=== PATIENT | male | born 1980 ===

== ENCOUNTER 2020-12-10 10:32 | Observation (INO) ==
[2020-12-10] MEDS ORDERED: Orphenadrine 60 MG/2 ML VIAL IM ONE (10:54)
[2020-12-10] MEDS ORDERED: methylPREDNISolone 125 MG/2 ML VIAL IM STA (10:54)
[2020-12-10 11:08] LABS: Bilirubin,Urine Negative (Negative); Blood,Urine Negative (Negative); Clarity,Urine Clear (Clear); Color,Urine Light-Yellow (Yellow); Glucose,Urine (UA) Normal (Normal); Ketones,Urine Negative (Negative); Leukocyte Esterase,Urine Negative (Negative); Nitrite,Urine Negative (Negative); PH,Urine 6.5 pH Units (5.0-8.0); Protein,Urine Negative (Neg-Trace); Specific Gravity,Urine 1.019 (1.010-1.025); Urobilinogen,Urine Normal (Normal)
[2020-12-10] MEDS ORDERED: *HR* HYDROmorphone (PF) 1 MG/ML SYRINGE IVP ONE (15:27)
[2020-12-10 16:15] LABS: Basophils % 0.1 %; Eosinophils % 0.1 %; Hematocrit 46.1 % (37.5-50.1); Hemoglobin 14.9 g/dL (12.9-16.9); Immature Granulocytes % 0.4 % (0-4); Lymphocytes # 0.7 K/mcL (0.6-4.6); Lymphocytes % 4.5 %; Mean Corpuscular HGB Conc 32.3 g/dL (31.6-35.5); Mean Corpuscular Hemoglobin 29.5 pg (28.0-33.3); Mean Corpuscular Volume 91.3 fL (83.0-100.0); Monocytes # 0.1 K/mcL (0.0-1.3); Monocytes % 0.9 %; Neutrophils # 13.8 K/mcL (1.6-8.9); Platelet Count 290 K/mcL (140-400); Red Blood Count 5.05 M/mcL (4.19-5.50); Red Cell Distribution Width 12.8 % (11.5-14.5); White Blood Count 14.7 K/mcL (4.3-11.1)
[2020-12-10 16:28] LABS: BUN/Creatinine Ratio 13 (6-26); Blood Urea Nitrogen 9 mg/dL (6-20); Calcium 9.2 mg/dL (8.6-10.3); Carbon Dioxide 24 mEq/L (23-29); Chloride 103 mEq/L (98-107); Glucose 116 mg/dL (70-105); Osmolality,Calculated 280 (280-300); Potassium 4.3 mEq/L (3.5-5.1); Sodium 135 mEq/L (136-145); eGFR For African Americans > 60 (> 60); eGFR For Non-African Americans > 60 (> 60)
[2020-12-10] MEDS ORDERED: Ondansetron 4 MG/2 ML VIAL IVP PRN (17:09)
[2020-12-10] MEDS ORDERED: Naloxone 0.4 MG/ML INJ IVP PRN (17:09)
[2020-12-10] MEDS ORDERED: Acetaminophen 325 MG TABLET PO PRN (17:09)
[2020-12-10 17:29] LABS: Amphetamine Screen,Urine Negative ng/mL (Cutoff=1000); Barbiturate Screen,Urine Negative ng/mL (Cutoff=200); Benzodiazepines Screen,Urine Positive ng/mL (Cutoff=200); Cannabinoid Screen,Urine Positive ng/mL (Cutoff = 50); Cocaine Screen,Urine Negative ng/mL (Cutoff= 300); Opiate Screen,Urine Negative ng/mL (Cutoff=300); Phencyclidine Screen,Urine Negative ng/mL (Cutoff=25)
[2020-12-10] MEDS: *HR* HYDROcodone/Acet 5/325 mg TABLET PO PRN (19:47)
[2020-12-10] MEDS: traZODone 50 MG TABLET PO SCH (19:47)
[2020-12-10] MEDS: *HR* Heparin 5,000 UNIT/ML VIAL SQ SCH (22:06)
[2020-12-11 01:45] LABS: Hematocrit 43.8 % (37.5-50.1); Hemoglobin 14.3 g/dL (12.9-16.9); Mean Corpuscular HGB Conc 32.6 g/dL (31.6-35.5); Mean Corpuscular Hemoglobin 29.4 pg (28.0-33.3); Mean Corpuscular Volume 89.9 fL (83.0-100.0); Mean Platelet Volume 9.3 fL (9.4-12.4); Platelet Count 346 K/mcL (140-400); Red Blood Count 4.87 M/mcL (4.19-5.50); Red Cell Distribution Width 12.8 % (11.5-14.5); White Blood Count 14.6 K/mcL (4.3-11.1)
[2020-12-11 02:04] LABS: BUN/Creatinine Ratio 18 (6-26); Blood Urea Nitrogen 14 mg/dL (6-20); Carbon Dioxide 24 mEq/L (23-29); Chloride 101 mEq/L (98-107); Chol/HDL Ratio 5.8 (0-4.9); Cholesterol 214 mg/dL (< 200); Glucose 191 mg/dL (70-105); HDL Cholesterol 37 mg/dL (40-59); LDL Cholesterol,Calculated 159 mg/dL (< 100); Magnesium 1.8 mg/dL (1.6-2.6); Osmolality,Calculated 288 (280-300); Potassium 3.7 mEq/L (3.5-5.1); Sodium 136 mEq/L (136-145); Triglycerides 88 mg/dL (< 150); eGFR For African Americans > 60 (> 60); eGFR For Non-African Americans > 60 (> 60)
[2020-12-11] MEDS: *HR* HYDROmorphone 2 MG TABLET PO PRN ×2 (02:16→20:44)
[2020-12-11 02:50] LABS: Estimated Average Glucose 108 mg/dl; Hemoglobin A1C 5.4 %
[2020-12-11] MEDS: *HR* Heparin 5,000 UNIT/ML VIAL SQ SCH ×3 (06:06→20:45)
[2020-12-11] MEDS: Cholecalciferol (D-3) 1,000 UNIT (25MCG) TABLET PO SCH (08:21)
[2020-12-11] MEDS: allopurinoL 100 MG TABLET PO SCH (08:21)
[2020-12-11] MEDS: Venlafaxine XR (24 HR) 75 MG CAP.ER.24H PO SCH (08:25)
[2020-12-11] MEDS: *HR* HYDROcodone/Acet 5/325 mg TABLET PO PRN (16:24)
[2020-12-11] MEDS: traZODone 50 MG TABLET PO SCH (20:44)
[2020-12-12 06:08] LABS: Hematocrit 43.5 % (37.5-50.1); Hemoglobin 13.9 g/dL (12.9-16.9); Mean Corpuscular Hemoglobin 29.4 pg (28.0-33.3); Mean Corpuscular Volume 92.2 fL (83.0-100.0); Mean Platelet Volume 9.3 fL (9.4-12.4); Platelet Count 292 K/mcL (140-400); Red Blood Count 4.72 M/mcL (4.19-5.50); White Blood Count 10.9 K/mcL (4.3-11.1)
[2020-12-12] MEDS: *HR* Heparin 5,000 UNIT/ML VIAL SQ SCH ×2 (06:19→13:04)
[2020-12-12] MEDS: *HR* HYDROcodone/Acet 5/325 mg TABLET PO PRN (06:21)
[2020-12-12 06:25] LABS: BUN/Creatinine Ratio 16 (6-26); Blood Urea Nitrogen 14 mg/dL (6-20); Calcium 8.6 mg/dL (8.6-10.3); Carbon Dioxide 28 mEq/L (23-29); Chloride 105 mEq/L (98-107); Glucose 118 mg/dL (70-105); Osmolality,Calculated 290 (280-300); Potassium 3.9 mEq/L (3.5-5.1); Sodium 139 mEq/L (136-145); eGFR For African Americans > 60 (> 60); eGFR For Non-African Americans > 60 (> 60)
[2020-12-12] MEDS: Cholecalciferol (D-3) 1,000 UNIT (25MCG) TABLET PO SCH (08:53)
[2020-12-12] MEDS: *HR* HYDROmorphone 2 MG TABLET PO PRN (08:53)
[2020-12-12] MEDS: allopurinoL 100 MG TABLET PO SCH (08:53)
[2020-12-12] MEDS: Venlafaxine XR (24 HR) 75 MG CAP.ER.24H PO SCH (08:55)
[2020-12-12 15:34] VITALS: BP 149/92
== END 2020-12-12 15:43 | disposition home or self-care (01) ==
LOC: 3NENU 10:32 → EMEROOARM 10:32 → SUATTDRO 17:10 → 3NENU 18:49
PROVIDERS: ADMIT Internal Medicine; ATTEND Internal Medicine

== ENCOUNTER 2021-05-18 06:28 | Observation (INO) ==
[2021-05-18] MEDS ORDERED: Clindamycin 900 MG/50 ML 900 MG/50 ML IV.SOLN IVPB ONE (07:01)
[2021-05-18] MEDS ORDERED: *HR* Midazolam HCl 2 MG/2 ML VIAL ONE (07:11)
[2021-05-18] MEDS ORDERED: Lidocaine -MPF 2% 2 ML VIAL ONE (07:11)
[2021-05-18] MEDS ORDERED: *HR* Rocuronium Bromide 50 MG/5 ML VIAL ONE (07:11)
[2021-05-18] MEDS ORDERED: *HR* FentaNYL (PF) 100 MCG/2 ML VIAL ONE (07:11)
[2021-05-18] MEDS ORDERED: *HR* Succinylcholine 200 MG/10 ML VIAL IVP ONE (07:11)
[2021-05-18] MEDS ORDERED: Lidocaine HCL 4 ML Topical Solution (Laryng-O-Jet Kit Sterile Pak) TP ONE (07:11)
[2021-05-18] MEDS ORDERED: Ondansetron 4 MG/2 ML VIAL ONE (07:11)
[2021-05-18] MEDS ORDERED: *HR* Propofol 200 MG/20 ML VIAL IVP ONE (07:11)
[2021-05-18] MEDS ORDERED: Ringers Solution, Lactated 1,000 ML IVC SCH (07:15)
[2021-05-18] MEDS ORDERED: *HR* Vasopressin 20 UNIT/ML VIAL ONE (07:27)
[2021-05-18] MEDS ORDERED: *HR* OxyCODONE Immed Rel 5 MG TABLET PO PRN (07:34)
[2021-05-18] MEDS ORDERED: Famotidine 20 MG/2 ML VIAL IVP ONE (07:34)
[2021-05-18] MEDS ORDERED: Acetaminophen IV 1,000 MG/100 ML BAG IVPB ONE (07:34)
[2021-05-18] MEDS ORDERED: Pregabalin 75 MG CAPSULE PO ONE (07:34)
[2021-05-18] MEDS ORDERED: *HR* Labetalol 20 MG/4 ML SYRINGE IVP PRN (07:34)
[2021-05-18] MEDS ORDERED: *HR* HYDROmorphone 2 MG TABLET PO PRN (07:34)
[2021-05-18] MEDS ORDERED: Polymyxin B Sulfate 500,000 UNIT, Sodium Chloride IRRigation 1,000 ML IR ONE (07:45)
[2021-05-18] MEDS ORDERED: Vancomycin 1,000 MG VIAL ONE (08:45)
[2021-05-18] MEDS ORDERED: *HR* Magnesium Sulfate 1 GM/2 ML VIAL ONE (08:51)
[2021-05-18] MEDS ORDERED: *HR* Phenylephrine 10 MG/ML VIAL ONE (08:56)
[2021-05-18] MEDS ORDERED: EPHEDrine 50 MG/ML VIAL ONE (09:01)
[2021-05-18] MEDS ORDERED: Ketorolac 30 MG/ML VIAL ONE (09:55)
[2021-05-18] MEDS ORDERED: *HR* HYDROMORPHONE 2 MG/ML VIAL ONE (09:59)
[2021-05-18] MEDS: *HR* HYDROmorphone (PF) 1 MG/ML SYRINGE IVP PRN ×3 (10:36→10:56)
[2021-05-18] MEDS ORDERED: Acetaminophen 325 MG TABLET PO PRN (11:13)
[2021-05-18] MEDS ORDERED: Ondansetron 4 MG/2 ML VIAL IVP PRN (11:13)
[2021-05-18] MEDS ORDERED: Naloxone 0.4 MG/ML INJ IVP PRN (11:13)
[2021-05-18] MEDS ORDERED: Ondansetron ODT 4 MG TAB.RAPDIS PO PRN (11:50)
[2021-05-18] MEDS: *HR* HYDROcodone/Acet 5/325 mg TABLET PO PRN (14:13)
[2021-05-18] MEDS: Ringers Solution, Lactated 1,000 ML IVC SCH (14:14)
[2021-05-18] MEDS: Clindamycin 900 MG/50 ML 900 MG/50 ML IV.SOLN IVPB SCH (15:46)
[2021-05-18] MEDS: *HR* OxyCODONE Immed Rel 5 MG TABLET PO PRN ×2 (15:47→21:31)
[2021-05-18] MEDS: Sucralfate 1 GM TABLET PO SCH (21:30)
[2021-05-18] MEDS: traZODone 50 MG TABLET PO SCH (21:31)
[2021-05-19] MEDS: Clindamycin 900 MG/50 ML 900 MG/50 ML IV.SOLN IVPB SCH (00:13)
[2021-05-19] MEDS: *HR* OxyCODONE Immed Rel 5 MG TABLET PO PRN ×3 (03:49→20:03)
[2021-05-19] MEDS: Venlafaxine XR (24 HR) 75 MG CAP.ER.24H PO SCH (07:52)
[2021-05-19] MEDS: allopurinoL 100 MG TABLET PO SCH (07:52)
[2021-05-19] MEDS: Cholecalciferol (D-3) 1,000 UNIT (25MCG) TABLET PO SCH (07:52)
[2021-05-19] MEDS: Sucralfate 1 GM TABLET PO SCH ×2 (07:53→20:04)
[2021-05-19] MEDS: *HR* HYDROcodone/Acet 5/325 mg TABLET PO PRN (07:58)
[2021-05-19] MEDS: traZODone 50 MG TABLET PO SCH (20:03)
[2021-05-20] MEDS: Ringers Solution, Lactated 1,000 ML IVC SCH (05:57)
[2021-05-20] MEDS: Cholecalciferol (D-3) 1,000 UNIT (25MCG) TABLET PO SCH (08:09)
[2021-05-20] MEDS: *HR* OxyCODONE Immed Rel 5 MG TABLET PO PRN ×2 (08:09→21:34)
[2021-05-20] MEDS: Sucralfate 1 GM TABLET PO SCH ×2 (08:09→21:34)
[2021-05-20] MEDS: Venlafaxine XR (24 HR) 75 MG CAP.ER.24H PO SCH (08:09)
[2021-05-20] MEDS: allopurinoL 100 MG TABLET PO SCH (08:09)
[2021-05-20] MEDS: *HR* HYDROcodone/Acet 5/325 mg TABLET PO PRN (18:01)
[2021-05-20] MEDS: traZODone 50 MG TABLET PO SCH (21:33)
[2021-05-21] MEDS: *HR* OxyCODONE Immed Rel 5 MG TABLET PO PRN ×3 (03:54→21:09)
[2021-05-21] MEDS: Cholecalciferol (D-3) 1,000 UNIT (25MCG) TABLET PO SCH (08:22)
[2021-05-21] MEDS: Venlafaxine XR (24 HR) 75 MG CAP.ER.24H PO SCH (08:22)
[2021-05-21] MEDS: Sucralfate 1 GM TABLET PO SCH ×2 (08:23→21:05)
[2021-05-21] MEDS: allopurinoL 100 MG TABLET PO SCH (08:23)
[2021-05-21] MEDS: *HR* HYDROcodone/Acet 5/325 mg TABLET PO PRN (08:35)
[2021-05-21 13:49] LABS: Adenovirus Not Detected (Not Detect); Coronavirus 229E Not Detected (Not Detect); Coronavirus HKU1 Not Detected (Not Detect); Coronavirus NL63 Not Detected (Not Detect); Coronavirus OC43 Not Detected (Not Detect); Human Metapneumovirus Not Detected (Not Detect); Human Rhinovirus/Enterovirus Not Detected (Not Detect); Influenza A Subtype 2009 H1 Not Detected (Not Detect); Influenza B Not Detected (Not Detect); Parainfluenza Virus 1 Not Detected (Not Detect); SARS-CoV-2 Not Detected (Not Detect)
[2021-05-21 13:50] LABS: Bordetella Pertussis Not Detected (Not Detect); Chlamydophila pneumoniae Not Detected (Not Detect); Mycoplasma pneumoniae Not Detected (Not Detect); Parainfluenza Virus 2 Not Detected (Not Detect); Parainfluenza Virus 3 DETECTED (Not Detect); Parainfluenza Virus 4 Not Detected (Not Detect); Respiratory Syncytial Virus Not Detected (Not Detect)
[2021-05-21] MEDS: traZODone 50 MG TABLET PO SCH (21:05)
[2021-05-22] MEDS: allopurinoL 100 MG TABLET PO SCH (09:57)
[2021-05-22] MEDS: Cholecalciferol (D-3) 1,000 UNIT (25MCG) TABLET PO SCH (09:57)
[2021-05-22] MEDS: Venlafaxine XR (24 HR) 75 MG CAP.ER.24H PO SCH (09:58)
[2021-05-22] MEDS: Sucralfate 1 GM TABLET PO SCH ×2 (09:58→21:32)
[2021-05-22 12:58] LABS: Influenza A PCR Negative (Negative); Influenza B PCR Negative (Negative); Resp. Syncytial Virus PCR Negative (Negative)
[2021-05-22 13:36] LABS: SARS-CoV-2 by PCR (In House) Negative (Negative)
[2021-05-22 14:53] LABS: Adenovirus Not Detected (Not Detect); Bordetella Pertussis Not Detected (Not Detect); Chlamydophila pneumoniae Not Detected (Not Detect); Coronavirus 229E Not Detected (Not Detect); Coronavirus HKU1 Not Detected (Not Detect); Coronavirus NL63 Not Detected (Not Detect); Coronavirus OC43 Not Detected (Not Detect); Human Metapneumovirus Not Detected (Not Detect); Human Rhinovirus/Enterovirus Not Detected (Not Detect); Influenza A Subtype 2009 H1 Not Detected (Not Detect); Influenza B Not Detected (Not Detect); Mycoplasma pneumoniae Not Detected (Not Detect); Parainfluenza Virus 1 Not Detected (Not Detect); Parainfluenza Virus 2 Not Detected (Not Detect); Parainfluenza Virus 3 Not Detected (Not Detect); Parainfluenza Virus 4 Not Detected (Not Detect); Respiratory Syncytial Virus Not Detected (Not Detect); SARS-CoV-2 Not Detected (Not Detect)
[2021-05-22] MEDS: *HR* OxyCODONE Immed Rel 5 MG TABLET PO PRN ×2 (16:41→21:32)
[2021-05-22] MEDS: traZODone 50 MG TABLET PO SCH (21:32)
[2021-05-23] MEDS: Venlafaxine XR (24 HR) 75 MG CAP.ER.24H PO SCH (09:44)
[2021-05-23] MEDS: Cholecalciferol (D-3) 1,000 UNIT (25MCG) TABLET PO SCH (09:44)
[2021-05-23] MEDS: Sucralfate 1 GM TABLET PO SCH ×2 (09:44→21:27)
[2021-05-23] MEDS: allopurinoL 100 MG TABLET PO SCH (09:45)
[2021-05-23] MEDS: *HR* HYDROcodone/Acet 5/325 mg TABLET PO PRN (09:46)
[2021-05-23] MEDS: *HR* OxyCODONE Immed Rel 5 MG TABLET PO PRN (17:50)
[2021-05-23] MEDS: traZODone 50 MG TABLET PO SCH (21:27)
[2021-05-24 08:06] VITALS: BP 121/84; PULSE 76; TEMP 98; O2SAT 97
[2021-05-24] MEDS: Cholecalciferol (D-3) 1,000 UNIT (25MCG) TABLET PO SCH (08:46)
[2021-05-24] MEDS: *HR* OxyCODONE Immed Rel 5 MG TABLET PO PRN (08:46)
[2021-05-24] MEDS: Venlafaxine XR (24 HR) 75 MG CAP.ER.24H PO SCH (08:46)
[2021-05-24] MEDS: Sucralfate 1 GM TABLET PO SCH (08:47)
[2021-05-24] MEDS: allopurinoL 100 MG TABLET PO SCH (08:47)
== END 2021-05-24 13:37 ==
LOC: SAMDAY 06:28 → 3NENU 06:28
PROVIDERS: ADMIT Orthopaedic Surgery Orthopaedic Surgery of the Spine; ATTEND Orthopaedic Surgery Orthopaedic Surgery of the Spine